=== PATIENT | male | born 1960 | race Caucasian/White ===

== ENCOUNTER → 2018-05-16 | Outpatient (CLI) | payer OTHER ==
[2014-05-17 18:49] VITALS: BP 127/80
[~2018-05-16] MED LIST: OLAN10TA3 PO
--- NOTE | 2018-05-16 09:15 | RAD ---
Two-view lumbar spine dated 05/16/2018. No comparison available. CLINICAL INDICATION: Pain. FINDINGS: 2 views lumbar spine show 6 nonrib-bearing vertebral levels. The lower most lumbar type vertebral body will be labeled a lumbarized S1 segment for the purposes of this exam. Sagittal alignment is anatomic. There is mild superior endplate depression of T12 and L1, likely remote. Vertebral body heights are otherwise maintained. Mild endplate hypertrophic changes throughout. Moderate arthrosis lower lumbar apophyseal joints. IMPRESSION: 1. Transitional anatomy at the lumbosacral junction. Please see above report for numbering scheme. 2. Mild superior endplate compression deformities of T12 and L1, likely remote. 3. Mild lower lumbar spondylosis. Electronically signed by: Julian Fernando MD (05/16/2018 9:12 AM) [id number]
== END | disposition home or self-care (01) ==
LOC: RAD 08:31
PROVIDERS: ATTEND Surgery
DX: M47.816 Spondylosis without myelopathy or radiculopathy, lumbar region (principal); M43.8X5 Other specified deforming dorsopathies, thoracolumbar region
CPT/HCPCS: 72100

== ENCOUNTER → 2018-09-30 | Emergency (ER) | payer MEDICAID, OTHER ==
[2014-05-17 18:49] VITALS: BP 127/80
--- NOTE | 2018-10-03 07:06 | EKG ---
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
== END ==
LOC: ER 22:40
DX: R42 Dizziness and giddiness (principal); Z53.21 Procedure and treatment not carried out due to patient leaving prior to being seen by health care provider
CPT/HCPCS: 93005

== ENCOUNTER 2019-05-22 19:05 | Emergency (ER) | payer MEDICAID, OTHER ==
[~2019-05-22] VITALS: Ht 177.8 cm; Wt 65.9 kg
[2019-05-22 20:04] LABS: BILIRUBIN,URINE NEGATIVE (NEG); CLARITY,URINE CLEAR; COLOR,URINE YELLOW; NITRITE,URINE NEGATIVE (NEG); PH,URINE 7.5 (<5.0-8.0); PROTEIN,URINE NEGATIVE (NEG-TRACE)
[2019-05-22 20:06] LABS: BASO % 1 % (0-3); EOS # 0.2 x10^3/uL (0.0-0.7); EOS % 3 % (0-3); HEMATOCRIT 42.9 % (39.0-53.0); HEMOGLOBIN 15.1 g/dL (13.0-17.5); LYMPH # 1.2 x10^3/uL (1.0-4.8); LYMPH % 15 % (24-48); MEAN CORPUSCULAR HEMOGLOBIN 30 pg (25-35); MEAN CORPUSCULAR HGB CONC 35 g/dL (31-37); MEAN CORPUSCULAR VOLUME 86 fL (79-100); MONO # 0.3 x10^3/uL (0.0-1.1); MONO % 4 % (0-9); NEUT # 6.2 x10^3/uL (1.8-7.7); NEUT % 77 % (31-73); PLATELET COUNT 206 x10^3/uL (140-400); RED BLOOD COUNT 4.98 x10^6/uL (4.30-5.70); RED CELL DISTRIBUTION WIDTH 13.6 % (11.5-14.5); WHITE BLOOD COUNT 8.1 x10^3/uL (4.0-11.0)
[2019-05-22 20:17] LABS: CALCIUM 8.3 mg/dL (8.5-10.1); GFR 76.7; POTASSIUM 4.1 mmol/L (3.5-5.1)
[2019-05-22 20:22] LABS: ALBUMIN 3.2 g/dL (3.4-5.0); ALBUMIN/GLOBULIN RATIO 1.1 (1.0-1.7); TOTAL BILIRUBIN 0.5 mg/dL (0.2-1.0); TOTAL PROTEIN 6.1 g/dL (6.4-8.2)
[2019-05-22 20:23] LABS: SQUAMOUS EPITHELIAL CELL,UR OCC /LPF
[2019-05-22 20:24] LABS: BACTERIA,URINE 0 /HPF (0-FEW); RBC,URINE 0 /HPF (0-2); WBC,URINE 0 /HPF (0-4)
--- NOTE | 2019-05-22 20:35 | RAD ---
INDICATION: Cough COMPARISON: February 2014 FINDINGS: Single view of chest obtained. No focal airspace consolidation. Cardiomediastinal contour unremarkable. No acute osseous abnormality. IMPRESSION: * No focal airspace consolidation or edema. Electronically signed by: Giovanni Palmer MD (05/22/2019 8:33 PM) [id number]
[2019-05-22] MEDS ORDERED: PRED50TA PO (21:50)
[2019-05-22] MEDS ORDERED: BENZ100C PO (21:50)
--- NOTE | 2019-05-22 21:51 | PHYS DOC ---
Past Medical History Past Medical History: Other Additional Past Medical Histor: TARDIVE DYSKINESIA,ADHD,CHRONIC BACK PAIN (CHANTE ARANA APRN) Past Surgical History: Appendectomy Additional Past Surgical Histo: L ANKLE, R ANKLE (CHANTE ARANA APRN) Smoking Status: Current Every Day Smoker Alcohol Use: None Drug Use: Methamphetamine (CHANTE ARANA APRN) Attending Signature I have participated in the care of this patient and I have reviewed and agree with all pertinent clinical information above including history, exam, and recommendations. (MISTY CALABRESE MD) Adult General Chief Complaint Chief Complaint: SHORTNESS OF BREATH HPI HPI Patient is a 58 year old homeless man with history of COPD, current smoker presenting to the ED today complaining of cough and shortness of breath, symptoms have been going on for 1 week. He believes he has subjective fevers. He reports living under a bridge (CHANTE ARANA APRN) Review of Systems Review of Systems Constitutional: Denies fever or chills [] Eyes: Denies change in visual acuity, redness, or eye pain [] HENT: Denies nasal congestion or sore throat [] Respiratory: Reports cough and shortness of breath [] Cardiovascular: No additional information not addressed in HPI [] GI: Denies abdominal pain, nausea, vomiting, bloody stools or diarrhea [] : Denies dysuria or hematuria [] Musculoskeletal: Denies back pain or joint pain [] Integument: Denies rash or skin lesions [] Neurologic: Denies headache, focal weakness or sensory changes [] All other systems were reviewed and found to be within normal limits, except as documented in this note. (CHANTE ARANA APRN) Allergies Allergies Allergies Coded Allergies Type Severity Reaction Last Updated Verified benztropine Allergy Intermediate hives 05/17/14 Yes (MISTY CALABRESE MD) Physical Exam Physical Exam Constitutional: Well developed, well nourished, no acute distress, non-toxic appearance. [] HENT: Normocephalic, atraumatic, bilateral external ears normal, oropharynx moist, no oral exudates, nose normal. [] Eyes: PERRLA, EOMI, conjunctiva normal, no discharge. [] Neck: Normal range of motion, no tenderness, supple, no stridor. [] Cardiovascular:Heart rate regular rhythm, no murmur [] Lungs & Thorax: Bilateral breath sounds clear to auscultation [] Abdomen: Bowel sounds normal, soft, no tenderness, no masses, no pulsatile masses. [] Skin: Warm, dry, no erythema, grouped erythematous rash noted on the chest lico picious of shingles, has been present for a while per patient statement. Back: No tenderness, no CVA tenderness. [] Extremities: No tenderness, no cyanosis, no clubbing, ROM intact, no edema. [] Neurologic: Alert and oriented X 3, normal motor function, normal sensory function, no focal deficits noted. [] Psychologic: Affect normal, judgement normal, mood normal. [] (CHANTE ARANA APRN) Current Patient Data Vital Signs Vital Signs Date Time Temp Pulse Resp B/P (MAP) Pulse Ox O2 Delivery O2 Flow Rate FiO2 05/22/19 21:58 68 121/60 (80) 95 Room Air 05/22/19 19:10 98.3 16 98.3 (MISTY CALABRESE MD) Lab Values Laboratory Tests Test 05/22/19 19:45 White Blood Count 8.1 x10^3/uL (4.0-11.0) Red Blood Count 4.98 x10^6/uL (4.30-5.70) Hemoglobin 15.1 g/dL (13.0-17.5) Hematocrit 42.9 % (39.0-53.0) Mean Corpuscular Volume 86 fL (79-100) Mean Corpuscular Hemoglobin 30 pg (25-35) Mean Corpuscular Hemoglobin Concent 35 g/dL (31-37) Red Cell Distribution Width 13.6 % (11.5-14.5) Platelet Count 206 x10^3/uL (140-400) Neutrophils (%) (Auto) 77 % (31-73) H Lymphocytes (%) (Auto) 15 % (24-48) L Monocytes (%) (Auto) 4 % (0-9) Eosinophils (%) (Auto) 3 % (0-3) Basophils (%) (Auto) 1 % (0-3) Neutrophils # (Auto) 6.2 x10^3/uL (1.8-7.7) Lymphocytes # (Auto) 1.2 x10^3/uL (1.0-4.8) Monocytes # (Auto) 0.3 x10^3/uL (0.0-1.1) Eosinophils # (Auto) 0.2 x10^3/uL (0.0-0.7) Basophils # (Auto) 0.0 x10^3/uL (0.0-0.2) Urine Collection Type Unknown Urine Color Yellow Urine Clarity Clear Urine pH 7.5 (<5.0-8.0) Urine Specific [place] 1.025 (1.000-1.030) Urine Protein Negative mg/dL (NEG-TRACE) Urine Glucose (UA) Negative mg/dL (NEG) Urine Ketones (Stick) Negative mg/dL (NEG) Urine Blood Negative (NEG) Urine Nitrite Negative (NEG) Urine Bilirubin Negative (NEG) Urine Urobilinogen Dipstick 1.0 mg/dL (0.2 mg/dL) Urine Leukocyte Esterase Negative (NEG) Urine RBC 0 /HPF (0-2) Urine WBC 0 /HPF (0-4) Urine Squamous Epithelial Cells Occ /LPF Urine Bacteria 0 /HPF (0-FEW) Urine Mucus Slight /LPF Sodium Level 140 mmol/L (136-145) Potassium Level 4.1 mmol/L (3.5-5.1) Chloride Level 105 mmol/L (98-107) Carbon Dioxide Level 29 mmol/L (21-32) Anion Gap 6 (6-14) Blood Urea Nitrogen 19 mg/dL (8-26) Creatinine 1.0 mg/dL (0.7-1.3) Estimated GFR (Cockcroft-Gault) 76.7 BUN/Creatinine Ratio 19 (6-20) Glucose Level 127 mg/dL (70-99) H Calcium Level 8.3 mg/dL (8.5-10.1) L Magnesium Level 2.0 mg/dL (1.8-2.4) Total Bilirubin 0.5 mg/dL (0.2-1.0) Aspartate Amino Transferase (AST) 31 U/L (15-37) Alanine Aminotransferase (ALT) 46 U/L (16-63) Alkaline Phosphatase 98 U/L (46-116) Troponin I Quantitative < 0.017 ng/mL (0.000-0.055) NG-Fmy-E-Type Natriuretic Peptide 23 pg/mL (0-124) Total Protein 6.1 g/dL (6.4-8.2) L Albumin 3.2 g/dL (3.4-5.0) L Albumin/Globulin Ratio 1.1 (1.0-1.7) Laboratory Tests 05/22/19 19:45 Laboratory Tests 05/22/19 19:45 (MISTY CALABRESE MD) EKG EKG [] (CHANTE ARANA APRN) Radiology/Procedures Radiology/Procedures []PROCEDURE: PORTABLE CHEST 1V INDICATION: Cough COMPARISON: February 2014 FINDINGS: Single view of chest obtained. No focal airspace consolidation. Cardiomediastinal contour unremarkable. No acute osseous abnormality. IMPRESSION: * No focal airspace consolidation or edema. Electronically signed by: Anuja Palmer MD (05/22/2019 8:33 PM) [id number] DICTATED and SIGNED BY: ANUJA PALMER MD DATE: 05/22/192032 (CHANTE ARANA APRN) Course & Med Decision Making Course & Med Decision Making Pertinent Labs and Imaging studies reviewed. (See chart for details) This is a 58-year-old male patient presenting to the ED today with cough and shortness of breath symptoms for 1 week. Patient is homeless. He [place] living [place] bridge. Chest x-ray is negative. Labs are negative. Discharged with instructions to follow-up with his own PCP. Encouraged to consider smoking cessation. (CHANTE ARANA APRN) Dragon Disclaimer Dragon Disclaimer This electronic medical record was generated, in whole or in part, using a voice recognition dictation system. (CHANTE ARANA APRN) Departure Departure Impression: Primary Impression: Bronchitis Additional Impression: Smoking addiction Disposition: HOME, SELF-CARE Condition: STABLE Referrals: NO PCP (PCP) follow up with your doctor in 1-2 weeks Patient Instructions: Acute Bronchitis, Jjzv-[id number], Smoking Cessation Scripts Benzonatate (TESSALON PERLE) 100 Mg Capsule 1 CAP PO TID, #30 CAP Prov: CHANTE ARANA APRN 05/22/19 Prednisone (PREDNISONE) 50 Mg Tablet 1 TAB PO DAILY, #5 TAB Prov: CHANTE ARANA APRN 05/22/19 Problem Qualifiers CHANTE ARANA APRN May 22, 2019 21:51 MISTY CALABRESE MD May 22, 2019 23:20
[2019-05-22 21:58] VITALS: BP 121/60
--- NOTE | 2019-05-23 06:01 | EKG ---
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
== END 2019-05-22 22:07 | disposition home or self-care (01) ==
LOC: EDSEX 19:05 → ER 19:05
DX: J44.9 Chronic obstructive pulmonary disease, unspecified (principal); F17.200 Nicotine dependence, unspecified, uncomplicated; G89.29 Other chronic pain; Z88.8 Allergy status to other drugs, medicaments and biological substances
CPT/HCPCS: 36415; 71045; 80053; 81001; 83735; 83880; 84484; 85025; 93005; 99285-25

== ENCOUNTER 2020-05-27 09:04 | Emergency (ER) | payer SELFPAY ==
[~2020-05-27] VITALS: Ht 175.3 cm; Wt 73.6 kg
[~2020-05-27 09:04] MED LIST changes: +BENZ100C PO; +PRED50TA PO
[2020-05-27 09:17] VITALS: BP 162/107
[2020-05-27] MEDS ORDERED: IBUPROFEN 400 MG TABLET. PO ONE (09:45)
--- NOTE | 2020-05-27 10:17 | RAD ---
XR HAND_RIGHT 2 VIEWS History: Reason: laceration rt hand, hx frostbite to right 2nd digit / Spl. Instructions: / History: Comparison: None. Technique: 2 views of the right hand. Findings: Acro osteolysis at the index finger distal phalanx with surrounding soft tissue swelling. There is no evidence for fracture. No dislocation. No destructive osseous lesions are seen. Joint spaces are preserved. No no radiopaque foreign body. Impression: 1. Acro osteolysis at the distal phalanx of the index finger is compatible with frostbite injury. Electronically signed by: Trey Rivera MD (05/27/2020 10:15 AM) [facility]
--- NOTE | 2020-05-27 10:46 | PHYS DOC ---
Past Medical History Past Medical History: Hypertension, Other Additional Past Medical Histor: TARDIVE DYSKINESIA,ADHD,CHRONIC BACK PAIN Past Surgical History: Appendectomy Additional Past Surgical Histo: L ANKLE, R ANKLE Smoking Status: Current Every Day Smoker Alcohol Use: None Drug Use: Methamphetamine Adult General Chief Complaint Chief Complaint: LACERATION/AVULSION HPI HPI Patient is a 59 year old male presenting the emergency department for laceration of the right hand. Patient states that many months ago he injured it secondary to frostbite on the right index finger. However today he states he was working and cut the dorsum of the right hand on a nail. Denies any additional injury. States his last tetanus shot was 3 years ago Review of Systems Review of Systems Constitutional: Denies fever or chills [] Eyes: Denies change in visual acuity, redness, or eye pain [] HENT: Denies nasal congestion or sore throat [] Respiratory: Denies cough or shortness of breath [] Cardiovascular: No additional information not addressed in HPI [] GI: Denies abdominal pain, nausea, vomiting, bloody stools or diarrhea [] : Denies dysuria or hematuria [] Musculoskeletal: Denies back pain or joint pain [] Integument: Denies rash or skin lesions [] Neurologic: Denies headache, focal weakness or sensory changes [] Endocrine: Denies polyuria or polydipsia [] All other systems were reviewed and found to be within normal limits, except as documented in this note. Current Medications Current Medications Current Medications Medications (Trade) Dose Ordered Sig/Wilfred Start Time Stop Time Status Last Admin Dose Admin Ibuprofen (Motrin) 800 mg 1X ONCE 05/27/20 09:45 05/27/20 09:46 DC Allergies Allergies Allergies Coded Allergies Type Severity Reaction Last Updated Verified benztropine Allergy Intermediate hives 05/17/14 Yes Physical Exam Physical Exam Constitutional: Well developed, well nourished, no acute distress, non-toxic appearance. [] HENT: Normocephalic, atraumatic, bilateral external ears normal, oropharynx moist, no oral exudates, nose normal. [] Eyes: PERRLA, EOMI, conjunctiva normal, no discharge. [] Neck: Normal range of motion, no tenderness, supple, no stridor. [] Cardiovascular:Heart rate regular rhythm, no murmur [] Lungs & Thorax: Bilateral breath sounds clear to auscultation [] Abdomen: Bowel sounds normal, soft, no tenderness, no masses, no pulsatile masses. [] Skin: Warm, dry, no erythema, no rash. [] Back: No tenderness, no CVA tenderness. [] Extremities: No tenderness, no cyanosis, no clubbing, ROM intact, no edema. 1 cm irregular laceration on dorsum of the right hand Neurologic: Alert and oriented X 3, normal motor function, normal sensory function, no focal deficits noted. [] Psychologic: Affect normal, judgement normal, mood normal. [] Current Patient Data Vital Signs Vital Signs Date Time Temp Pulse Resp B/P (MAP) Pulse Ox O2 Delivery O2 Flow Rate FiO2 05/27/20 09:17 98.2 60 18 162/107 (125) 100 Room Air 98.2 EKG EKG [] Radiology/Procedures Radiology/Procedures [] Course & Med Decision Making Course & Med Decision Making Pertinent Labs and Imaging studies reviewed. (See chart for details) 59-year-old male presents emergency department with right hand laceration. Likely secondary to nail. Will obtain x-ray to make sure there is no underlying foreign body and otherwise it can be cleaned and repaired with surgical glue. Of note the patient was offered Motrin refused because he stated that he "has better pain medication at home." Dragon Disclaimer Dragon Disclaimer This electronic medical record was generated, in whole or in part, using a voice recognition dictation system. Departure Departure Impression: Primary Impression: Hand laceration Disposition: 01 DC HOME SELF CARE/HOMELESS Condition: GOOD Referrals: NO PCP (PCP) Patient Instructions: Laceration Care, Adult Additional Instructions: EMERGENCY DEPARTMENT GENERAL DISCHARGE INSTRUCTIONS Thank you for coming to [facility] Emergency Department (ED) today and trusting us with you care. We trust that you had a positive experience in our Emergency Department. If you wish to speak to the department management, you may call the Director at [phone]. YOUR FOLLOW UP INSTRUCTIONS ARE FOLLOWS: 1. Do you have a private Doctor? If you do not have a private doctor, please ask for a resource list of physicians or clinics that may be able to assist you with follow up care. 2. The Emergency Physicain has interpreted your x-rays. The X-Ray specialist will also review them. If there is a change in the findings, you will be notified in 48 hours when at all possible. 3. A lab test or culture has been done, your results will be reviewed and you will be notified if you need a change in treatment. ADDITIONAL INSTRUCTIONS AND INFORMATION: 1. Your care today has been supervised by a physician who is specially trained in emergency care. Many problems require more than one evaluation for a complete diagnosis and treatment. We recommend that you schedule your follow up appointment as recommended to ensure complete treatment of you illness or injury. If you are unable to obtain follow up care and continue to have a problem, or if your condition worsens, we recommend that you return to the ED. 2. We are not able to safely determine your condition over the phone nor are we able to give sound medical advice over the phone. For these safety reasons, if you call for medical advice we will ask you to come to the ED for further evaluation. 3. If you have any questions regarding these discharge instructions please call the ED at [phone]. SAFETY INFORMATION: In the interest of safety, wellness, and injury prevention; we encourage you to wear your sealbelt, if you smoke; quite smoking, and we encourage family to use a protective helmet for bicycling and other sporting events that present an increased risk for head injury. IF YOUR SYMPTOMS WORSEN OR NEW SYMPTOMS DEVELOP, OR YOU HAVE CONCERNS ABOUT YOUR CONDITION; OR IF YOUR CONDITION WORSENS WHILE YOU ARE WAITING FOR YOUR FOLLOW UP APPOINTMENT; EITHER CONTACT YOUR PRIMARY CARE DOCTOR, THE PHYSICIAN WHOSE NAME AND NUMBER YOU WERE GIVEN, OR RETURN TO THE ED IMMEDIATELY. CHAR HAMMER MD May 27, 2020 10:46
== END 2020-05-27 12:10 | disposition home or self-care (01) ==
LOC: ER 09:04
DX: S61.411A Laceration without foreign body of right hand, initial encounter (principal); I10 Essential (primary) hypertension; G89.29 Other chronic pain; F17.200 Nicotine dependence, unspecified, uncomplicated; F19.90 Other psychoactive substance use, unspecified, uncomplicated; Z90.89 Acquired absence of other organs; Z98.890 Other specified postprocedural states; X31.XXXA Exposure to excessive natural cold, initial encounter; Y93.89 Activity, other specified; Y92.89 Other specified places as the place of occurrence of the external cause; Y99.8 Other external cause status
CPT/HCPCS: 12001; 73120; 99283

== ENCOUNTER 2020-11-27 07:44 | Emergency (ER) | payer SELFPAY ==
[~2020-11-27] VITALS: Ht 175.3 cm; Wt 70.4 kg
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
[2020-11-27] MEDS ORDERED: ACETAMINOPHEN 325 MG TABLET. PO ONE (08:00)
[2020-11-27] MEDS ORDERED: traMADol 50 MG TABLET PO ONE (08:00)
[2020-11-27] MEDS ORDERED: NEOMY/BACITR/POLYMYXIN OINT PACKET. TP ONE (08:00)
--- NOTE | 2020-11-27 08:37 | RAD ---
Site ID: [id number] EXAMINATION: XR KNEE _3 VIEWS_LT, XR LT TIBIA + FIBULA. HISTORY: 59 years Male Reason: knee pain/ankle pain COMPARISON: None. FINDINGS: There is a an acute nondisplaced fracture from involving the upper shaft of the fibula. The knee join t demonstrate no subluxation or dislocation. In the distal left tibia there is a screw through the m edial malleolus fixating an old the fracture. The joint spaces and articular surfaces appear unrem arkable. IMPRESSION: Acute nondisplaced fracture through the proximal shaft of the left fibula. Electronically signed by: David Paul MD (11/27/2020 8:35 AM) [email or web address]
[2020-11-27] MEDS ORDERED: IBUPROFEN 200 MG TABLET. PO ONE (08:45)
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
--- NOTE | 2020-11-27 09:33 | RAD ---
Site ID: [id number] EXAMINATION: XR EXAM OF ANKLE_LEFT 3V. HISTORY: 59 years Male Reason: knee pain/ankle pain - COMPARISON: None. FINDINGS: No fracture, dislocation is seen in the ankle. That there is a screw fixation of an old healed fractu re in the medial malleolus. The joint spaces and articular surfaces appear unremarkable. IMPRESSION: No fracture at the ankle. Electronically signed by: David Paul MD (11/27/2020 9:31 AM) [email or web address]
[2020-11-27] MEDS ORDERED: HYDR-2761 PO (12:47)
[2020-11-27 14:34] VITALS: BP 141/85
== END 2020-11-27 14:50 | disposition home or self-care (01) ==
LOC: ER 07:44
DX: S82.402A Unspecified fracture of shaft of left fibula, initial encounter for closed fracture (principal); F15.90 Other stimulant use, unspecified, uncomplicated; I10 Essential (primary) hypertension; G89.29 Other chronic pain; F17.200 Nicotine dependence, unspecified, uncomplicated; F20.9 Schizophrenia, unspecified; F90.9 Attention-deficit hyperactivity disorder, unspecified type; Z88.8 Allergy status to other drugs, medicaments and biological substances; W23.0XXA Caught, crushed, jammed, or pinched between moving objects, initial encounter; Y93.89 Activity, other specified; Y92.89 Other specified places as the place of occurrence of the external cause; Y99.8 Other external cause status
CPT/HCPCS: 29515; 73562; 73590; 73610; 73630; 96372; 99285; J2060

== ENCOUNTER 2021-04-17 22:25 | Emergency (ER) | payer SELFPAY ==
[~2021-04-17] VITALS: Ht 175.3 cm; Wt 75.0 kg
[~2021-04-17 22:25] MED LIST changes: +HYDR-2761 PO
--- NOTE | 2021-04-17 22:37 | PHYS DOC ---
Past Medical History Past Medical History: Hypertension, Other Additional Past Medical Histor: TARDIVE DYSKINESIA,ADHD,CHRONIC BACK PAIN,HEPATITIS C Past Surgical History: Appendectomy Additional Past Surgical Histo: L ANKLE, R ANKLE Smoking Status: Current Every Day Smoker Alcohol Use: None Drug Use: Methamphetamine General Adult EDM: Chief Complaint: NAUSEA/VOMITING/DIARRHEA HPI: HPI: Patient is a 60-year-old male who presents to the emergency department today for nausea and vomiting that started after he ate some dinner. Patient states that he ate dinner at [employer] this evening and started having an upset stomach. Patient reports vomiting 4 times today. He has been at the [facility] for rehab from methamphetamines and has been sober for 30 days. Patient denies any abdominal pain, blood in his stools or vomit, fevers, urinary symptoms. He is tolerating oral intake. EMS reports that patient drank half of his water bottle in route. Review of Systems: Review of Systems: Constitutional: negative unless reported in HPI Eyes: negative unless reported in HPI HENT: negative unless reported in HPI Respiratory: negative unless reported in HPI Cardiovascular: negative unless reported in HPI GI: negative unless reported in HPI : negative unless reported in HPI Musculoskeletal: negative unless reported in HPI Integument: negative unless reported in HPI Neurologic: negative unless reported in HPI Endocrine: negative unless reported in HPI Lymphatic: negative unless reported in HPI Psychiatric: negative unless reported in HPI Heart Score: C/O Chest Pain: N/A Risk Factors: Risk Factors: DM, Current or recent (<one month) smoker, HTN, HLP, family history of CAD, obesity. Risk Scores: Score 0 - 3: 2.5% MACE over next 6 weeks - Discharge Home Score 4 - 6: 20.3% MACE over next 6 weeks - Admit for Clinical Observation Score 7 - 10: 72.7% MACE over next 6 weeks - Early Invasive Strategies Allergies: Allergies: Allergies Coded Allergies Type Severity Reaction Last Updated Verified benztropine Allergy Intermediate hives 05/17/14 Yes Physical Exam: PE: Constitutional: Well developed, well nourished, no acute distress, non-toxic appearance. [] HENT: Normocephalic, atraumatic, bilateral external ears normal, oropharynx moist, no oral exudates, nose normal. [] Eyes: PERRL, EOMI, conjunctiva normal, no discharge. [] Neck: Normal range of motion, no stridor Cardiovascular:Heart rate regular rhythm, no murmur [] Lungs & Thorax: Bilateral breath sounds clear to auscultation [] Abdomen: Bowel sounds normal, soft, no tenderness, no abdominal guarding or rig idity, negative Amaya sign, no masses, no pulsatile masses. [] Skin: Warm, dry, no erythema, no rash. [] Back: No tenderness, normal range of motion Extremities: No tenderness, no cyanosis, no clubbing, ROM intact, no edema. [] Neurologic: Alert and oriented X 3, normal motor function, normal sensory function, no focal deficits noted. [] Psychologic: Affect normal, judgement normal, mood normal. [] Current Patient Data: Labs: Laboratory Tests Test 04/17/21 23:30 White Blood Count 9.0 x10^3/uL Red Blood Count 5.26 x10^6/uL Hemoglobin 15.3 g/dL Hematocrit 45.3 % Mean Corpuscular Volume 86 fL Mean Corpuscular Hemoglobin 29 pg Mean Corpuscular Hemoglobin Concent 34 g/dL Red Cell Distribution Width 14.5 % Platelet Count 171 x10^3/uL Neutrophils (%) (Auto) 91 % Lymphocytes (%) (Auto) 5 % Monocytes (%) (Auto) 3 % Eosinophils (%) (Auto) 2 % Basophils (%) (Auto) 0 % Neutrophils # (Auto) 8.2 x10^3/uL Lymphocytes # (Auto) 0.4 x10^3/uL Monocytes # (Auto) 0.2 x10^3/uL Eosinophils # (Auto) 0.1 x10^3/uL Basophils # (Auto) 0.0 x10^3/uL Sodium Level 139 mmol/L Potassium Level 4.2 mmol/L Chloride Level 105 mmol/L Carbon Dioxide Level 25 mmol/L Anion Gap 9 Blood Urea Nitrogen 21 mg/dL Creatinine 0.8 mg/dL Estimated GFR (Cockcroft-Gault) 98.6 BUN/Creatinine Ratio 26 Glucose Level 126 mg/dL Calcium Level 7.9 mg/dL Total Bilirubin 0.9 mg/dL Aspartate Amino Transf (AST/SGOT) 17 U/L Alanine Aminotransferase (ALT/SGPT) 42 U/L Alkaline Phosphatase 87 U/L Total Protein 7.0 g/dL Albumin 3.5 g/dL Albumin/Globulin Ratio 1.0 Lipase 37 U/L Influenza Type A Antigen Negative Influenza Type B Antigen Negative SARS-CoV-2 Antigen (Rapid) Negative Current Medications Medications (Trade) Dose Ordered Sig/Wilfred Route PRN Reason Start Time Stop Time Status Last Admin Dose Admin Sodium Chloride 1,000 ml @ 1,000 mls/hr 1X ONCE IV 04/17/21 23:00 04/17/21 23:59 DC 04/17/21 23:40 Ondansetron HCl (Zofran) 4 mg 1X ONCE IVP 04/17/21 23:00 04/17/21 23:01 DC 04/17/21 23:40 EKG: EKG: [] Radiology/Procedures: Radiology/Procedures: []PROCEDURE: PORTABLE CHEST 1V XR CHEST 1V Clinical History: Reason: pui / Spl. Instructions: / History: Technique: AP view of the chest was obtained at 04/18/2021 12:13 AM. Comparison: May 22, 2019. Findings: The cardiomediastinal silhouette is normal. The pulmonary vasculature is normal. The lungs and pleural margins are clear. Impression: No evidence of an acute cardiopulmonary process. Electronically signed by: Nayan Sinha III, MD (04/18/2021 12:33 AM) [facility] DICTATED and SIGNED BY: NAYAN SINHA III, MD DATE: 04/18/21 [id number] 0 Course & Med Decision Making: Course & Med Decision Making Pertinent Labs and Imaging studies reviewed. (See chart for details) [] Patient presents to the emergency department for nausea and vomiting that occurred after eating dinner. Patient believes that he ate something at [facility] [employer] that made him sick. Work-up in the ER consisted of blood work, UA, covid-19/influenza testing. He will be treated with IV fluids and nausea medication. He is not reporting any abdominal pain and is not tender with palpation of his abdomen. Blood work was unremarkable. Negative Covid and influenza test. Chest x-ray performed shows no acute findings. Patient's vital signs are stable, he is 94% on room air. Patient was p.o. challenged and was able to tolerate oral intake in the emergency department. He will be discharged home with nausea medication, educated on clear liquid diet and brat diet. I discussed with patient all findings and diagnostic testing as well as the need to follow-up with PCP for further evaluation and treatment or return to the ER if any new or worsening symptoms. Strict return precautions were also discussed at length. Patient voiced understanding and agreement with the plan. Patient is hemodynamically stable at the time of disposition. Shavon Disclaimer: Shavon Disclaimer: This electronic medical record was generated, in whole or in part, using a voice recognition dictation system. Departure Departure Impression: Primary Impression: Nausea & vomiting Qualified Codes: R11.2 - Nausea with vomiting, unspecified Disposition: HOME / SELF CARE / HOMELESS Condition: GOOD Referrals: NO PCP (PCP) Patient Instructions: Nausea and Vomiting Additional Instructions: You were seen in the emergency department today for nausea and vomiting after eating dinner today. Your blood work was unremarkable. Your rapid influenza and COVID test was negative. Chest x-ray did not show any acute findings. Given to tolerate oral intake in the emergency department without vomiting. You are being discharged home with nausea medication. Please take this as needed. For the next 24 hours please stick to a clear liquid diet this includes soups/broths, Jell-O, Gatorade. Following that stick to a bland diet. We recommend a brat diet which includes bananas, rice, applesauce and toast. Avoid eating any foods that are spicy, greasy or fatty. Follow-up with your primary care provider tomorrow regarding your ER visit. Return to the emergency department if you develop high fevers refractory to treatment, intractable nausea or vomiting, shortness of breath, chest pain, blood in your stools or vomit or any new or worsening concerns. Scripts Ondansetron (ONDANSETRON ODT) 4 Mg Tab.rapdis 1 TAB PO PRN Q6-8HRS for 7 Days, #28 TAB 0 Refills Prov: OBDULIA JIANG APRN 04/18/21 OBDULIA JIANG APRN Apr 17, 2021 22:37
[2021-04-17] MEDS ORDERED: ONDANSETRON PF 4 MG/2 ML VIAL. IVP ONE (23:00)
[2021-04-17] MEDS ORDERED: IV NORMAL SALINE 1000ML BAG 1,000 ML IV ONE (23:00)
[2021-04-17 23:43] LABS: BASO % 0 % (0-3); EOS # 0.1 x10^3/uL (0.0-0.7); EOS % 2 % (0-3); HEMATOCRIT 45.3 % (39.0-53.0); HEMOGLOBIN 15.3 g/dL (13.0-17.5); LYMPH # 0.4 x10^3/uL (1.0-4.8); LYMPH % 5 % (24-48); MEAN CORPUSCULAR HEMOGLOBIN 29 pg (25-35); MEAN CORPUSCULAR HGB CONC 34 g/dL (31-37); MEAN CORPUSCULAR VOLUME 86 fL (79-100); MONO # 0.2 x10^3/uL (0.0-1.1); MONO % 3 % (0-9); NEUT # 8.2 x10^3/uL (1.8-7.7); NEUT % 91 % (31-73); PLATELET COUNT 171 x10^3/uL (140-400); RED BLOOD COUNT 5.26 x10^6/uL (4.30-5.70); RED CELL DISTRIBUTION WIDTH 14.5 % (11.5-14.5)
[2021-04-17 23:54] LABS: CALCIUM 7.9 mg/dL (8.5-10.1); CREATININE 0.8 mg/dL (0.7-1.3); GFR 98.6; POTASSIUM 4.2 mmol/L (3.5-5.1)
[2021-04-17 23:59] LABS: INFLUENZA A PATIENT NEGATIVE (NEGATIVE); INFLUENZA B PATIENT NEGATIVE (NEGATIVE)
[2021-04-18] LABS: ALBUMIN 3.5 g/dL (3.4-5.0); TOTAL BILIRUBIN 0.9 mg/dL (0.2-1.0)
--- NOTE | 2021-04-18 00:35 | RAD ---
XR CHEST 1V Clinical History: Reason: pui / Spl. Instructions: / History: Technique: AP view of the chest was obtained at 04/18/2021 12:13 AM. Comparison: May 22, 2019. Findings: The cardiomediastinal silhouette is normal. The pulmonary vasculature is normal. The lungs and pleura l margins are clear. Impression: No evidence of an acute cardiopulmonary process. Electronically signed by: Eric Donnelly III, MD (04/18/2021 12:33 AM) [facility]
[2021-04-18 00:53] LABS: BILIRUBIN,URINE NEGATIVE (NEG); CLARITY,URINE CLEAR; COLOR,URINE YELLOW; NITRITE,URINE NEGATIVE (NEG); PROTEIN,URINE NEGATIVE (NEG-TRACE); UROBILINOGEN,URINE 0.2 mg/dL (0.2 mg/dL)
[2021-04-18] MEDS ORDERED: ONDA4TAB12 PO (00:55)
[2021-04-18 01:05] LABS: BACTERIA,URINE 0 /HPF (0-FEW)
[2021-04-18 01:11] VITALS: BP 155/83
[2021-04-18] MEDS ORDERED: ONDANSETRON PF 4 MG/2 ML VIAL. IVP ONE ×2 (02:30→02:45)
[2021-04-18] MEDS ORDERED: ONDANSETRON PF 4 MG/2 ML VIAL. IM ONE (03:00)
== END 2021-04-18 02:29 | disposition home or self-care (01) ==
LOC: ER 22:25
DX: R11.2 Nausea with vomiting, unspecified (principal); K30 Functional dyspepsia; Z20.822 Contact with and (suspected) exposure to COVID-19; I10 Essential (primary) hypertension; G89.29 Other chronic pain; F17.200 Nicotine dependence, unspecified, uncomplicated; Z90.89 Acquired absence of other organs; Z88.8 Allergy status to other drugs, medicaments and biological substances
CPT/HCPCS: 36415; 71045; 80053; 81001; 83690; 85025; 87428; 96361; 96374; 96376; 99285; J2405; J7030